=== PATIENT | male | born 1985 | race Caucasian/White ===

== ENCOUNTER 2024-08-10 18:02 | Emergency (ER) | payer BC, SELFPAY ==
[2024-08-10 18:13] VITALS: BP 124/67
--- NOTE | 2024-08-10 18:25 | ED.GENMED ---
History of Present Illness
General
Chief Complaint: Abdominal Pain
Source: patient
Exam Limitations: none
Time Seen by Provider: 08/10/24 18:08
History of Present Illness
History of Present Illness:
29-year-old male otherwise healthy presents with several days worth of scrotal pain right greater than the left which is now progressed to constant lower abdominal pain. He also notes ongoing cough congestion body aches and fatigue for 2 to 3
weeks. He initially thought he had sinus infection and took antibiotics, Augmentin for a week without any significant relief. He denies any dysuria or hematuria. He is and monogamous. No change in bowel movements. The pain in his
abdomen is made slightly worse by sitting up. The pain does not radiate to his back. No other complaints at this time
Phy Exam
Physical Exam
Physical Exam:
General: Well appearing male nad
HEENT: Nc/AT
Heart: RRR, no murmurs
Lungs: CTA bilaterally
Abd: soft, tender to RLQ and lower abdomen
: circumcised male, testicles tender bilaterally, no swelling, reflex intact
Ext; no cyanosis
Course
Orders/Labs/Results
Orders:
Orders
08/10/24 18:23
Iohexol [Omnipaque] See Protocol PO NOW STA
US Scrotum Urgent
Comment:
Reason For Exam: testicular pain
08/10/24 18:24
CR Chest - 2 Views Urgent
Comment:
Reason For Exam: cough
08/10/24 18:47
AFP Male/Tumor Marker Urgent
Comment: ADD ON
Complete Blood Count/With Diff Urgent
Comprehensive Metabolic Panel Urgent
HCG Male/Tumor Marker [S] Urgent
Comment: ADD ON
LDH Urgent
Comment: ADD ON
Lyme Progressive Urgent
Urinalysis Reflex To Culture Urgent
Date Specimen was Collected: 08/10/24
Time Specimen was Collected: 18:38
08/10/24 19:56
Add On- LAB Urgent
Tests Added?: alpha fetoprotein, LDH, beta hcg
08/10/24 20:15
CT Chest/abd/pel W Iv Cont Urgent
Reason For Exam: cough, testicular mass
08/10/24 20:19
Iohexol [Omnipaque] See Protocol PO NOW STA
Abnormal Lab Results
08/10/24
18:47
WBC 4.6 L 10^3/uL
(4.8-10.8)
RBC 4.67 L 10^6/uL
(4.70-6.10)
MCH 31.5 H pg
(27.0-31.0)
MPV 10.9 H fL
(7.4-10.4)
Absolute Lymphs (auto) 0.7 L 10^3/uL
(1.2-3.4)
Lymphocytes % 15.3 L %
(20.5-51.1)
Monocytes % 11.9 H %
(1.7-9.3)
BUN 28 H mg/dl
(9-20)
Glucose 111 H mg/dl
(70-99)
Total Protein 6.1 L g/dl
(6.3-8.2)
08/10/24 18:47
08/10/24 18:47
Vital Signs
Initial and Last Documented VS:
Initial Vital Signs
Temp Pulse Resp BP Pulse Ox
97.9 F 98 16 124/67 98
08/10/24 18:13 08/10/24 18:13 08/10/24 18:13 08/10/24 18:13 08/10/24 18:13
Last Documented Vital Signs
Temp Pulse Resp BP Pulse Ox
97.9 F 60 17 112/63 98
08/10/24 18:13 08/10/24 21:19 08/10/24 21:19 08/10/24 21:19 08/10/24 21:19
MDM/Problems Addressed
Differential Diagnosis Includes:
Patient with cough congestion and more recently scrotal and lower abdominal pain.
differential could include viral illness, lyme, appendicitis vs epididymitis versus hydrocele
Check labs. Chest x-ray ordered secondary to ongoing cough. Patient's pain started as scrotal pain will start with ultrasound of scrotum but have him drink for CT in the event ultrasound is unrevealing.
*Critical Care Note
Total Time (30-74mins, 75-104mins- exclusive of procedures): Not Applicable
Update Note
Update Note:
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 Ultrasound was followed up with CT of the chest abdomen pelvis without any mediastinal lymphadenopathy. There are subcentimeter lymph nodes in bilateral
inguinal regions noted. I printed out the report of the ultrasound and the CAT scan and gave to the patient. I discussed this with urology. Urology recommended he call the office first thing in the morning Monday for close follow-up.
ED Attending Note
-
Portions of this chart may have been created with voice recognition software.� Occasional wrong word or��sound alike� substitutions may have occurred due to the inherent limitations of voice recognition software.
Discharge Plan
Departure
Patient Disposition: Home (Routine Discharge)
Date of Disposition: 08/10/24
Time of Disposition: 22:28
Patient with high blood pressure during this ER visit?: No
Discharge Problem:
Mass of testicle
Referrals:
Socrates Miramontes MD [Active] -
Uma Hawkins MD [Family Provider] -
Activity Restrictions/Additional Instructions:
Please call urology office first thing Monday morning for follow-up. Return if needed otherwise
Interventions
Interventions:
*Risk Screen - Suicide Last Done: 08/10/24 18:05
*General Assessment Last Done: 08/10/24 18:37
*Neglect/Abuse Screening Last Done: 08/10/24 18:05
*ED- Fall Risk Assessment Last Done: 08/10/24 18:37
*ED COVID-19 Vaccine History Last Done: 08/10/24 18:37
YZ-Vxjazs-Hbrylhbzbr Assessment Last Done: 08/10/24 18:51
Discharge Date and Time
Print Language: UPPER SORBIAN
[2024-08-10 18:36] VITALS: BMI 26.8
[2024-08-10 18:38] VITALS: BP 116/68
[2024-08-10] MEDS: OMNIPAQUE 50 ML PO (18:39)
[2024-08-10 18:54] LABS: Urine Albumin Negative (Neg - Trace); Urine Bilirubin Negative (Negative); Urine Character Clear (Clear); Urine Color Yellow; Urine Glucose Negative (Negative); Urine Ketone Negative (Negative); Urine Leukocyte Negative (Negative); Urine Nitrite Negative (Negative); Urine Occult Blood Negative (Negative); Urine Specific Gravity 1.025 (<1.030); Urine Urobilinogen Negative (Neg - 1+)
[2024-08-10 18:55] LABS: % Basophils 0.9 % (0-2); % Eosinophils 1.7 % (0-6); % Immature Granulocytes 0.2 % (0-0.5); % Lymphocytes 15.3 % (20.5-51.1); % Monocytes 11.9 % (1.7-9.3); Absolute Eosinophils 0.1 10^3/uL (0-0.7); Absolute Lymphocytes 0.7 10^3/uL (1.2-3.4); Absolute Monocytes 0.6 10^3/uL (0.1-0.6); Absolute Neutrophils 3.3 10^3/uL (1.4-6.5); Hematocrit 41.2 % (39.0-52.0); Hemoglobin 14.7 g/dL (13.0-18.0); Mean Corp Hgb Conc. 35.7 g/dL (33.0-37.0); Mean Corpuscular Hgb 31.5 pg (27.0-31.0); Mean Corpuscular Volume 88.2 fL (80.0-94.0); Mean Platelet Volume 10.9 fL (7.4-10.4); Nucleated Red Blood Cells % 0 % (-); Platelet Count 216 10^3/uL (130-400); Red Blood Cell Count 4.67 10^6/uL (4.70-6.10); White Blood Cell Count 4.6 10^3/uL (4.8-10.8)
[2024-08-10 19:13] LABS: ALT (SGPT) 37 U/L (0-50); AST (SGOT) 33 U/L (17-59); Albumin 4.2 g/dl (3.5-5.0); Alkaline Phosphatase 65 U/L (38-126); Blood Urea Nitrogen 28 mg/dl (9-20); Calcium 8.9 mg/dl (8.4-10.2); Carbon Dioxide 25 mmol/L (22-30); Chloride 105 mmol/L (98-107); Estimated Creatinine Clearance 121 ml/min; Glucose 111 mg/dl (70-99); Potassium 3.9 mmol/L (3.5-5.1); Sodium 139 mmol/L (135-145); Total Bilirubin 1.2 mg/dl (0.2-1.3); Total Protein 6.1 g/dl (6.3-8.2); eGFR > 60.00
[2024-08-10 19:46] VITALS: BP 107/65
[2024-08-10 20:32] LABS: LDH 194 U/L (120-246)
[2024-08-10 21:19] VITALS: BP 112/63
[2024-08-10 22:46] VITALS: BP 102/62
[2024-08-12 13:52] LABS: Lyme Antibody Screen, EIA Negative (Negative)
[2024-08-12 18:25] LABS: AFP Male/Tumor Marker 1.17 ng/ml
[2024-08-12 20:35] LABS: HCG Male/Tumor Marker <1 IU/L (0-3)
== END 2024-08-10 22:55 | disposition home or self-care (01) ==
LOC: EMR 18:02
PROVIDERS: Physician Assistant; EMERGENCY PHYSICIAN Emergency Medicine; FAMILY PHYSICIAN Family Medicine
DX: N50.89 Other specified disorders of the male genital organs (principal); N50.811 Right testicular pain
CPT/HCPCS: 99284; 71046; 71260; 74177; 76870; 80053; 81003; 82105; 83615; 84702; 85025; 86618; 93976; Q9967